=== PATIENT | male | born 1950 | race African-American/Black ===

== ENCOUNTER 2018-01-04 01:44 | Emergency (ER) | payer OTHER ==
[~2018-01-04] VITALS: Ht 182.9 cm; Wt 138.0 kg
[2018-01-04 03:24] LABS: BASOPHILS % 1.2 % (0.0-2.0); EOSINOPHILS % 2.8 % (0.0-5.0); HEMATOCRIT. 42.8 % (42.0-52.0); HEMOGLOBIN. 14.4 g/dL (14.0-18.0); LYMPHOCYTES % 19.7 % (20.0-50.0); MEAN CORPUSCULAR HEMOGLOBIN 33.1 pg (28.0-32.0); MEAN CORPUSCULAR VOLUME 98.4 fL (80.0-94.0); MEAN PLATELET VOLUME 8.5 fl (7.4-10.4); NEUTROPHILS % 65.3 % (40.0-76.0); PLATELET 284 x1000/uL (130-400); RED BLOOD CELL COUNT 4.35 mill/uL (4.7-6.1); RED CELL DISTRIBUTION WIDTH 14.2 % (11.6-14.6)
[2018-01-04 03:31] LABS: INR 1.1; PROTHROMBIN TIME 11.4 sec (9.4-11.6)
[2018-01-04 03:53] LABS: CHLORIDE 106 mEq/L (98-107)
[2018-01-04 06:20] VITALS: BP 110/69
== END 2018-01-04 06:20 | disposition home or self-care (01) ==
LOC: ER 02:52 → CANBEDREQ 08:22
DX: S09.8XXA Other specified injuries of head, initial encounter (principal); R53.1 Weakness; M79.89 Other specified soft tissue disorders; R06.02 Shortness of breath; I10 Essential (primary) hypertension; F41.9 Anxiety disorder, unspecified; E78.00 Pure hypercholesterolemia, unspecified; Z88.0 Allergy status to penicillin; Z90.49 Acquired absence of other specified parts of digestive tract; Z93.3 Colostomy status; Z90.81 Acquired absence of spleen; W18.39XA Other fall on same level, initial encounter; Y93.89 Activity, other specified; Y92.89 Other specified places as the place of occurrence of the external cause; Y99.8 Other external cause status
CPT/HCPCS: 36415; 70450; 71045; 80053; 83880; 84484; 85025; 85610; 93005; 99285

== ENCOUNTER 2024-07-24 22:58 | Inpatient (IN) | payer MEDICARE, OTHER, MEDICAID ==
[~2024-07-24] VITALS: Ht 182.9 cm; Wt 110.0 kg
[~2024-07-24 22:58] MED LIST: ALBU18HF2 IH; ASPI-1497 PO; ATOR10TA69 PO; ATOR40TA70 PO; CARV3.1242 PO; CARV6.2548 MT; CLON-493 PO; CLON0.1T PO; CLOP75TA33 PO; HYDR25TA78 PO; TAMS-11 PO
[2024-07-25 00:57] LABS: BASOPHILS % 0.4 % (0.0-2.0); EOSINOPHILS % 2.5 % (0.0-5.0); HEMATOCRIT. 37.4 % (42.0-52.0); HEMOGLOBIN. 12.3 g/dL (14.0-18.0); LYMPHOCYTES % 8.8 % (20.0-50.0); MEAN CORPUSCULAR HEMOGLOBIN 28.7 pg (28.0-32.0); MONOCYTES % 8.8 % (2.0-8.0); NEUTROPHILS % 79.5 % (40.0-76.0); PLATELET 371 x1000/uL (130-400); RED CELL DISTRIBUTION WIDTH 16.8 % (11.6-14.6); WHITE BLOOD COUNT 15.5 x1000/uL (4.5-11.0)
[2024-07-25] MEDS ORDERED: CEFEPIME 1GM IN DEXT 5% 50ML IV ONE (01:15)
[2024-07-25] MEDS ORDERED: VANCOMYCIN 1G PREMIX 200 ML IV ONE (01:15)
[2024-07-25] MEDS: SODIUM CHLORIDE 0.9% 1,000 ML IV ONE (01:21)
[2024-07-25 01:24] LABS: CHLORIDE 108 mEq/L (98-107); POTASSIUM 3.9 mEq/L (3.5-5.1); SODIUM 136 mEq/L (136-145)
[2024-07-25 01:25] LABS: CARBON DIOXIDE 10 mEq/L (21-32)
[2024-07-25 01:26] LABS: CALCIUM 10.2 mg/dL (8.7-10.4)
[2024-07-25 01:30] LABS: GLUCOSE 122 mg/dL (70-105)
[2024-07-25 01:31] LABS: TROPONIN I HIGH SENSITIVITY 33 ng/L (3.0-53)
[2024-07-25] MEDS: CEFEPIME 1GM/50ML 50 ML IV NR (01:38)
[2024-07-25] MEDS: VANCOMYCIN 1000MG/250ML IV NR (02:09)
[2024-07-25 02:45] LABS: CREATININE 11.9 mg/dL (0.6-1.3); UREA NITROGEN BLOOD 148 mg/dL (9-23)
[2024-07-25 03:43] LABS: CLARITY URINE CLEAR (CLEAR); COLOR URINE YELLOW (YELLOW); GLUCOSE URINE NEGATIVE (NEGATIVE); KETONES URINE NEGATIVE (NEGATIVE); LEUKOCYTE ESTERASE URINE 2+ (NEGATIVE); NITRITE URINE NEGATIVE (NEGATIVE); OCCULT BLOOD URINE 2+ (NEGATIVE); PH URINE 5.5 (4.5-8.0); PROTEIN URINE 1+ (NEGATIVE); SPECIFIC GRAVITY URINE 1.015 (1.005-1.030); UROBILINOGEN URINE 0.2 E.U./dL (0.2-1.0)
[2024-07-25 06:01] LABS: WBC URINE 15-25 /hpf (0-2)
[2024-07-25 06:10] LABS: SQUAMOUS EPITHELIAL CELL URINE NONE SEEN /lpf (RARE/1+)
[2024-07-25 06:12] LABS: BACTERIA URINE TRACE
[2024-07-25 08:00] VITALS: BP 91/65; PULSE 95; RESP 18; TEMP 36.3918; TEMP 36.418; O2SAT 98
[2024-07-25] MEDS ORDERED: ONDANSETRON HCL 4MG/2ML INJ IV PRN (10:00)
[2024-07-25] MEDS ORDERED: DOCUSATE SODIUM 100MG CAPSULE PO PRN (10:00)
[2024-07-25] MEDS: SODIUM CHLORIDE 0.9% 1,000 ML IV SCH (11:09)
[2024-07-25] MEDS: SODIUM BICARBONATE 8.4% 50MEQ/50ML SYR IV SCH (11:28)
[2024-07-25] MEDS: LEVOFLOXACIN 500MG PREMIX 100 ML IV SCH (11:30)
[2024-07-25 11:50] LABS: GLUCOSE URINE NEGATIVE (NEGATIVE)
[2024-07-25] MEDS: SODIUM BICARBONATE 150 MEQ in DEXTROSE 5% WATER 850 ML IV SCH (11:55)
[2024-07-25 12:00] VITALS: BP 112/92; PULSE 93; RESP 18; TEMP 36.33624; O2SAT 97
[2024-07-25 12:05] LABS: CREATINE KINASE 242 IU/L (46-171)
[2024-07-25 12:12] LABS: HEPATITIS B SURFACE ANTIGEN NEGATIVE (Negative)
[2024-07-25 12:18] LABS: CLARITY URINE CLOUDY (CLEAR); COLOR URINE RED (YELLOW); PH URINE 6.5 (4.5-8.0); SPECIFIC GRAVITY URINE 1.025 (1.005-1.030)
[2024-07-25 12:19] LABS: PROTEIN URINE 4+ (NEGATIVE)
[2024-07-25 12:20] LABS: KETONES URINE TRACE (NEGATIVE); LEUKOCYTE ESTERASE URINE 2+ (NEGATIVE); NITRITE URINE NEGATIVE (NEGATIVE); OCCULT BLOOD URINE 4+ (NEGATIVE); UROBILINOGEN URINE 0.2 E.U./dL (0.2-1.0)
[2024-07-25 12:31] LABS: RBC URINE TNTC /hpf (0-2); SQUAMOUS EPITHELIAL CELL URINE NONE SEEN /lpf (RARE/1+)
[2024-07-25 12:33] LABS: BACTERIA URINE 3+; WBC URINE 50-100 /hpf (0-2)
[2024-07-25 12:33] LABS: HEPATITIS C AB NON REACTIVE (Neg) (Negative)
[2024-07-25] MEDS: LEVOFLOXACIN 750MG PREMIX 150 ML IV NR (13:44)
[2024-07-25 16:00] VITALS: BP 101/71; PULSE 95; RESP 20; TEMP 36.44736; O2SAT 99
[2024-07-25] MEDS ORDERED: NALOXONE HCL 0.4MG/ML VIAL IV PRN (18:45)
[2024-07-25] MEDS: HYDROCODONE/ACETAMINOPHEN 5/325MG TABLET PO PRN (18:51)
[2024-07-25] MEDS: ZINC OXIDE 20% OINT 30GM TOP SCH (18:52)
[2024-07-25 19:01] LABS: BG BASE EXCESS -6.9 mmol/L (-2.0-3.0); BG CARBOXYHEMOGLOBIN 0.1 % (0.5-1.5); BG DEOXYHEMOGLOBIN 2.7 % (0.0-5.0); BG FRACTION INSPIRED OXYGEN 21; BG HCO3 ACT 14.4 mmol/L (21.0-28.0); BG METHEMOGLOBIN 0.3 % (0.5-1.5); BG OXYGEN SATURATION 97.3 % (94.0-98.0); BG OXYHEMOGLOBIN 96.9 % (94.0-98.0); BG PCO2 18.9 mmHg (35.0-48.0); BG PH 7.499 (7.350-7.450); BG PO2 88.2 mmHg (83.0-108.0); BG SAMPLE SITE RIGHT RADIAL; BG TOTAL HEMOGLOBIN 10.9 g/dL (13.5-17.5); BG VENT MODE ROOM AIR
[2024-07-25 19:50] VITALS: BP 117/55; PULSE 101; RESP 14; TEMP 36.83628; O2SAT 99
[2024-07-25] MEDS: MICONAZOLE NITRATE 2% OINT 71GM TOP SCH (20:12)
[2024-07-25] MEDS: SODIUM BICARBONATE 8.4% 50MEQ/50ML SYR IV NR (20:13)
[2024-07-26] VITALS (27 sets, daily range): BP systolic 66–126; BP diastolic 48–97; PULSE 98–147; RESP 8–28; TEMP 36.6696–36.9474; O2SAT 94–100
[2024-07-26] MEDS: IPRATROPIUM/ALBUTEROL 0.5-3(2.5)MG/3ML NEB HHN SCH (02:00)
[2024-07-26] MEDS: TAMSULOSIN HCL 0.4MG SR CAPSULE PO SCH (10:42)
[2024-07-26] MEDS: PANTOPRAZOLE SODIUM 40 MG/VIAL IV SCH (10:42)
[2024-07-26 12:56] LABS: BASOPHILS % 0.3 % (0.0-2.0); EOSINOPHILS % 0.5 % (0.0-5.0); HEMATOCRIT. 27.9 % (42.0-52.0); HEMOGLOBIN. 9.3 g/dL (14.0-18.0); LYMPHOCYTES % 7.9 % (20.0-50.0); MEAN CORPUSCULAR HEMOGLOBIN 28.8 pg (28.0-32.0); MEAN CORPUSCULAR HGB CONC 33.5 g/dL (31.0-37.0); MEAN PLATELET VOLUME 7.6 fl (7.4-10.4); MONOCYTES % 11.5 % (2.0-8.0); NEUTROPHILS % 79.8 % (40.0-76.0); PLATELET 277 x1000/uL (130-400); RED BLOOD CELL COUNT 3.24 mill/uL (4.7-6.1); RED CELL DISTRIBUTION WIDTH 16.8 % (11.6-14.6); WHITE BLOOD COUNT 16.7 x1000/uL (4.5-11.0)
[2024-07-26 13:06] LABS: CALCIUM 8.9 mg/dL (8.7-10.4)
[2024-07-26 13:19] LABS: CREATININE 2.8 mg/dL (0.6-1.3)
[2024-07-26 13:23] LABS: POTASSIUM 2.6 mEq/L (3.5-5.1)
[2024-07-26] MEDS: POTASSIUM CHLORIDE 20MEQ/PACKET PO NR ×2 (16:00→18:11)
[2024-07-26] MEDS: DILTIAZEM HCL 5MG/ML 5ML VIAL IV NR (16:40)
[2024-07-26] MEDS: POTASSIUM CHLORIDE 20MEQ TABLET SR PO SCH (16:45)
[2024-07-26] MEDS: IPRATROPIUM BROMIDE (0.02%) 0.5MG/2.5ML NEB HHN SCH (16:57)
[2024-07-26] MEDS ORDERED: NOREPINEPHRINE 8MG/250ML PMX 250 ML IV PRN (19:15)
[2024-07-26] MEDS ORDERED: PHENYLEPHRINE 50MG/250ML PMX 250 ML IV PRN (19:15)
[2024-07-26] MEDS ORDERED: PHENYLEPHRINE 50 MG in SODIUM CHLORIDE 0.9% 245 ML IV PRN (19:15)
[2024-07-26] MEDS: DILTIAZEM HCL 125 MG in DEXT 5% WATER 100 ML IV PRN (19:26)
[2024-07-26] MEDS: PHENYLEPHRINE 100 MG in SODIUM CHLORIDE 0.9% 240 ML IV PRN (19:27)
[2024-07-26] MEDS: MORPHINE SULFATE 2 MG/ML INJ (NOT FOR IM USE) IV PRN (20:13)
[2024-07-26] MEDS: SODIUM BICARBONATE 150 MEQ in DEXTROSE 5% WATER 850 ML IV SCH (20:29)
[2024-07-26 21:05] LABS: BASOPHILS % 0.3 % (0.0-2.0); EOSINOPHILS % 0.6 % (0.0-5.0); HEMOGLOBIN. 9.5 g/dL (14.0-18.0); MEAN CORPUSCULAR HEMOGLOBIN 28.4 pg (28.0-32.0); MEAN CORPUSCULAR HGB CONC 32.6 g/dL (31.0-37.0); MEAN CORPUSCULAR VOLUME 87.1 fL (80.0-94.0); MEAN PLATELET VOLUME 8.3 fl (7.4-10.4); MONOCYTES % 12.5 % (2.0-8.0); NEUTROPHILS % 74.6 % (40.0-76.0); PLATELET 287 x1000/uL (130-400); RED BLOOD CELL COUNT 3.33 mill/uL (4.7-6.1); WHITE BLOOD COUNT 19.7 x1000/uL (4.5-11.0)
[2024-07-26 21:12] LABS: POTASSIUM 3.5 mEq/L (3.5-5.1)
[2024-07-26 21:13] LABS: CALCIUM 9.1 mg/dL (8.7-10.4)
[2024-07-26 21:18] LABS: CREATININE 2.3 mg/dL (0.6-1.3)
[2024-07-26] MEDS: AZTREONAM 1 G in DEXTROSE 5% WATER 50 ML IV SCH (21:20)
[2024-07-27] VITALS (108 sets, daily range): BP systolic 32–157; BP diastolic 15–122; PULSE 101–125; RESP 10–37; TEMP 36.3918–37.11408; O2SAT 93–100
[2024-07-27 05:02] LABS: POTASSIUM 3.1 mEq/L (3.5-5.1)
[2024-07-27 05:03] LABS: CALCIUM 9.1 mg/dL (8.7-10.4)
[2024-07-27 05:04] LABS: BASOPHILS % 0.5 % (0.0-2.0); EOSINOPHILS % 0.9 % (0.0-5.0); HEMATOCRIT. 26.5 % (42.0-52.0); HEMOGLOBIN. 8.9 g/dL (14.0-18.0); LYMPHOCYTES % 11.9 % (20.0-50.0); MEAN CORPUSCULAR HGB CONC 33.6 g/dL (31.0-37.0); MEAN CORPUSCULAR VOLUME 86.3 fL (80.0-94.0); MEAN PLATELET VOLUME 8.2 fl (7.4-10.4); MONOCYTES % 12.4 % (2.0-8.0); NEUTROPHILS % 74.3 % (40.0-76.0); PLATELET 263 x1000/uL (130-400); RED BLOOD CELL COUNT 3.07 mill/uL (4.7-6.1); RED CELL DISTRIBUTION WIDTH 16.5 % (11.6-14.6); WHITE BLOOD COUNT 19.6 x1000/uL (4.5-11.0)
[2024-07-27] MEDS: DEXTROSE 5% WATER 1,000 ML IV SCH (05:53)
[2024-07-27] MEDS: HYDROCODONE/ACETAMINOPHEN 5/325MG TABLET PO PRN (06:29)
[2024-07-27] MEDS: KCL 20MEQ/100ML PREMIX 100 ML IV SCH (09:41)
[2024-07-27] MEDS ORDERED: LEVOFLOXACIN 250MG PREMIX 50 ML IV SCH (11:30)
[2024-07-27] MEDS ORDERED: LEVOFLOXACIN 500MG PREMIX 100 ML IV SCH (14:00)
[2024-07-27] MEDS: ACETAMINOPHEN 325MG TABLET PO PRN (20:14)
[2024-07-27] MEDS: ATORVASTATIN CALCIUM 40MG TABLET PO SCH (20:14)
[2024-07-28] VITALS (99 sets, daily range): BP systolic 40–155; BP diastolic 12–109; PULSE 96–124; RESP 12–36; TEMP 36.6696–36.89184; O2SAT 89–100
[2024-07-28 06:02] LABS: POTASSIUM 4.2 mEq/L (3.5-5.1)
[2024-07-28 06:04] LABS: CALCIUM 9.2 mg/dL (8.7-10.4)
[2024-07-28 06:08] LABS: CREATININE 2.3 mg/dL (0.6-1.3)
[2024-07-28 06:10] LABS: ALBUMIN 2.8 g/dL (3.2-4.8)
[2024-07-28 06:12] LABS: PREALBUMIN 6.4 mg/dl (10.0-40.0)
[2024-07-28 06:17] LABS: BASOPHILS % 0.4 % (0.0-2.0); EOSINOPHILS % 2.2 % (0.0-5.0); HEMATOCRIT. 25.9 % (42.0-52.0); HEMOGLOBIN. 8.5 g/dL (14.0-18.0); LYMPHOCYTES % 10.1 % (20.0-50.0); MEAN CORPUSCULAR HGB CONC 32.8 g/dL (31.0-37.0); MEAN CORPUSCULAR VOLUME 88.3 fL (80.0-94.0); MEAN PLATELET VOLUME 8.4 fl (7.4-10.4); NEUTROPHILS % 78.3 % (40.0-76.0); PLATELET 235 x1000/uL (130-400); RED BLOOD CELL COUNT 2.93 mill/uL (4.7-6.1); RED CELL DISTRIBUTION WIDTH 17.3 % (11.6-14.6); WHITE BLOOD COUNT 23.4 x1000/uL (4.5-11.0)
[2024-07-28] MEDS: LIDOCAINE HCL 1% 10 MG/ML 10ML VIAL ONE (09:03)
[2024-07-28 09:12] LABS: COMPLEMENT C3 135 mg/dL (82-167); COMPLEMENT C4 26 mg/dL (12-38)
[2024-07-28 14:11] LABS: ANTI-NUCLEAR ANTIBODIES DIRECT Negative (Negative)
[2024-07-28] MEDS: HALOPERIDOL LACTATE 5MG/ML VIAL IM NR (23:28)
[2024-07-29] VITALS (62 sets, daily range): BP systolic 67–147; BP diastolic 38–122; PULSE 88–125; RESP 9–29; TEMP 36.6696–37.2252; O2SAT 92–100
[2024-07-29 05:52] LABS: HEMATOCRIT 26.1 % (42.0-52.0); HEMOGLOBIN 8.2 g/dL (14.0-18.0); MEAN CORPUSCULAR HEMOGLOBIN 28.9 pg (28.0-32.0); MEAN CORPUSCULAR HGB CONC 31.4 g/dL (31.0-37.0); MEAN CORPUSCULAR VOLUME 92.2 fL (80.0-94.0); PLATELET 215 x1000/uL (130-400); RED BLOOD CELL COUNT 2.83 mill/uL (4.7-6.1); RED CELL DISTRIBUTION WIDTH 18.1 % (11.6-14.6)
[2024-07-29 06:48] LABS: POTASSIUM 4.7 mEq/L (3.5-5.1)
[2024-07-29 06:54] LABS: CREATININE 1.7 mg/dL (0.6-1.3)
[2024-07-29] MEDS: AZTREONAM 2GM in DEXTROSE 5% WATER 100ML IV SCH (10:28)
[2024-07-29] MEDS: CEFEPIME 2GM/100ML 100 ML IV SCH (14:33)
[2024-07-30] VITALS (111 sets, daily range): BP systolic 68–179; BP diastolic 29–121; PULSE 91–123; RESP 11–51; TEMP 37.00296–37.55856; O2SAT 94–100
[2024-07-30 06:23] LABS: BASOPHILS % 0.6 % (0.0-2.0); EOSINOPHILS % 8.4 % (0.0-5.0); HEMATOCRIT. 24.7 % (42.0-52.0); HEMOGLOBIN. 7.9 g/dL (14.0-18.0); MEAN CORPUSCULAR HEMOGLOBIN 28.7 pg (28.0-32.0); MEAN CORPUSCULAR HGB CONC 31.9 g/dL (31.0-37.0); MEAN CORPUSCULAR VOLUME 89.8 fL (80.0-94.0); MEAN PLATELET VOLUME 8.5 fl (7.4-10.4); MONOCYTES % 8.6 % (2.0-8.0); NEUTROPHILS % 66.4 % (40.0-76.0); PLATELET 211 x1000/uL (130-400); RED BLOOD CELL COUNT 2.75 mill/uL (4.7-6.1); RED CELL DISTRIBUTION WIDTH 18.4 % (11.6-14.6); WHITE BLOOD COUNT 17.7 x1000/uL (4.5-11.0)
[2024-07-30 06:37] LABS: POTASSIUM 4.1 mEq/L (3.5-5.1)
[2024-07-30 06:38] LABS: CALCIUM 8.4 mg/dL (8.7-10.4)
[2024-07-30 06:43] LABS: CREATININE 1.4 mg/dL (0.6-1.3)
[2024-07-30] MEDS ORDERED: IOHEXOL-300 100 ML BOTTLE ONE (07:53)
[2024-07-30] MEDS ORDERED: LIDOCAINE HCL 1% 10 MG/ML 10ML VIAL ONE (07:53)
[2024-07-30 08:40] LABS: INR 1.2; PROTHROMBIN TIME 13.4 sec (9.6-11.0)
[2024-07-30] MEDS ORDERED: IOHEXOL-300 50 ML BOTTLE IV ONE (10:25)
[2024-07-30] MEDS: CLONIDINE 0.1MG TABLET PO PRN (13:26)
[2024-07-31] VITALS (44 sets, daily range): BP systolic 73–143; BP diastolic 43–112; PULSE 94–124; RESP 14–26; TEMP 36.6696–37.2252; O2SAT 94–100
[2024-07-31 06:14] LABS: POTASSIUM 4.1 mEq/L (3.5-5.1)
[2024-07-31 06:15] LABS: CALCIUM 8.7 mg/dL (8.7-10.4)
[2024-07-31 06:18] LABS: HEMATOCRIT 28.3 % (42.0-52.0); HEMOGLOBIN 8.8 g/dL (14.0-18.0); MEAN CORPUSCULAR HEMOGLOBIN 28.3 pg (28.0-32.0); MEAN CORPUSCULAR VOLUME 91.2 fL (80.0-94.0); PLATELET 237 x1000/uL (130-400); RED CELL DISTRIBUTION WIDTH 18.5 % (11.6-14.6); WHITE BLOOD COUNT 20.4 x1000/uL (4.5-11.0)
[2024-07-31 06:20] LABS: CREATININE 1.5 mg/dL (0.6-1.3)
[2024-07-31] MEDS: MULTIVITAMINS,THER W-MINERALS TABLET PO SCH (15:14)
[2024-08-01 08:00] VITALS: BP 108/60; PULSE 86; RESP 18; TEMP 36.72516; O2SAT 94
[2024-08-01 11:09] LABS: CALCIUM 8.5 mg/dL (8.7-10.4)
[2024-08-01 11:13] LABS: BASOPHILS % 0.9 % (0.0-2.0); CREATININE 1.7 mg/dL (0.6-1.3); EOSINOPHILS % 7.1 % (0.0-5.0); HEMATOCRIT. 24.3 % (42.0-52.0); HEMOGLOBIN. 7.8 g/dL (14.0-18.0); MEAN CORPUSCULAR HEMOGLOBIN 29.3 pg (28.0-32.0); MEAN CORPUSCULAR HGB CONC 32.3 g/dL (31.0-37.0); MEAN CORPUSCULAR VOLUME 90.8 fL (80.0-94.0); MEAN PLATELET VOLUME 8.2 fl (7.4-10.4); MONOCYTES % 9.5 % (2.0-8.0); NEUTROPHILS % 67.5 % (40.0-76.0); PLATELET 209 x1000/uL (130-400); RED BLOOD CELL COUNT 2.68 mill/uL (4.7-6.1); RED CELL DISTRIBUTION WIDTH 18.1 % (11.6-14.6); WHITE BLOOD COUNT 13.6 x1000/uL (4.5-11.0)
[2024-08-01 12:00] VITALS: BP 108/81; PULSE 84; PULSE 94; RESP 18; TEMP 36.28068; O2SAT 98
[2024-08-01 16:00] VITALS: BP 116/60; PULSE 89; RESP 17; TEMP 36.78072; O2SAT 97
[2024-08-01] MEDS: FUROSEMIDE 20MG/2ML VIAL IVP NR (18:47)
[2024-08-01 20:00] VITALS: BP 110/55; PULSE 65; PULSE 95; RESP 20; TEMP 36.44736; O2SAT 94
[2024-08-02] VITALS: BP 112/56; PULSE 86; RESP 20; TEMP 36.44736; O2SAT 98
[2024-08-02 04:00] VITALS: BP 103/70; PULSE 81; RESP 20; TEMP 36.44736; O2SAT 99
[2024-08-02 08:00] VITALS: BP 123/57; PULSE 79; RESP 18; TEMP 36.50292; O2SAT 99
[2024-08-02 11:57] LABS: POTASSIUM 3.8 mEq/L (3.5-5.1)
[2024-08-02 11:58] LABS: CALCIUM 8.9 mg/dL (8.7-10.4)
[2024-08-02 12:00] VITALS: BP 103/50; PULSE 89; RESP 19; TEMP 36.55848; O2SAT 99
[2024-08-02 12:03] LABS: CREATININE 1.6 mg/dL (0.6-1.3)
[2024-08-02] MEDS: ASPIRIN 81MG TABLET PO SCH (13:30)
[2024-08-02 16:00] VITALS: BP 118/60; PULSE 87; RESP 18; TEMP 36.33624; O2SAT 97
[2024-08-02 20:00] VITALS: BP 132/69; PULSE 82; RESP 19; TEMP 36.72516; O2SAT 100
[2024-08-03] VITALS: BP 127/61; PULSE 75; RESP 19; TEMP 36.61404; O2SAT 100
[2024-08-03] MEDS ORDERED: NALOXONE HCL 0.4MG/ML VIAL IV PRN (00:30)
[2024-08-03] MEDS: TRAMADOL 50MG TABLET PO PRN (00:43)
[2024-08-03 04:00] VITALS: BP 124/61; PULSE 77; RESP 19; TEMP 36.72516; O2SAT 99
[2024-08-03 08:00] VITALS: BP 121/62; PULSE 81; RESP 18; TEMP 36.114; O2SAT 93
[2024-08-03 10:14] LABS: BASOPHILS % 0.7 % (0.0-2.0); EOSINOPHILS % 5.4 % (0.0-5.0); HEMATOCRIT. 26.8 % (42.0-52.0); HEMOGLOBIN. 8.7 g/dL (14.0-18.0); LYMPHOCYTES % 21.6 % (20.0-50.0); MEAN CORPUSCULAR HEMOGLOBIN 29.4 pg (28.0-32.0); MEAN CORPUSCULAR HGB CONC 32.5 g/dL (31.0-37.0); MEAN CORPUSCULAR VOLUME 90.3 fL (80.0-94.0); MEAN PLATELET VOLUME 8.2 fl (7.4-10.4); MONOCYTES % 11.8 % (2.0-8.0); NEUTROPHILS % 60.5 % (40.0-76.0); PLATELET 284 x1000/uL (130-400); RED BLOOD CELL COUNT 2.97 mill/uL (4.7-6.1); RED CELL DISTRIBUTION WIDTH 18.5 % (11.6-14.6); WHITE BLOOD COUNT 12.4 x1000/uL (4.5-11.0)
[2024-08-03 10:30] LABS: CHLORIDE 110 mEq/L (98-107); POTASSIUM 3.8 mEq/L (3.5-5.1); SODIUM 138 mEq/L (136-145)
[2024-08-03 10:31] LABS: CALCIUM 8.9 mg/dL (8.7-10.4); CARBON DIOXIDE 19 mEq/L (21-32)
[2024-08-03 10:36] LABS: CREATININE 1.3 mg/dL (0.6-1.3); GLUCOSE 94 mg/dL (70-105); UREA NITROGEN BLOOD 18 mg/dL (9-23)
[2024-08-03] MEDS: FUROSEMIDE 40MG/4ML VIAL IVP SCH (11:42)
[2024-08-03 12:00] VITALS: BP 121/56; PULSE 89; RESP 20; TEMP 36.78072; O2SAT 96
[2024-08-03 16:00] VITALS: BP 133/61; PULSE 88; RESP 20; TEMP 36.22512; O2SAT 94
[2024-08-03 20:00] VITALS: BP 117/60; PULSE 85; RESP 19; TEMP 36.72516; O2SAT 98
[2024-08-03] MEDS: TEMAZEPAM 15MG CAPSULE PO PRN (22:47)
[2024-08-04] VITALS: BP 128/66; PULSE 82; RESP 19; TEMP 36.61404; O2SAT 100
[2024-08-04 04:00] VITALS: BP_SYST 128; BP_SYST 129; BP_DIAS 66; BP_DIAS 69; PULSE 82; RESP 19; TEMP 36.61404; O2SAT 100
[2024-08-04 08:00] VITALS: BP 115/73; PULSE 83; RESP 18; TEMP 36.44736; O2SAT 98
[2024-08-04 12:00] VITALS: BP 118/58; PULSE 83; RESP 18; TEMP 36.44736; O2SAT 98
[2024-08-04 16:00] VITALS: BP 138/68; PULSE 90; RESP 19; TEMP 36.72516; O2SAT 96
[2024-08-04 20:00] VITALS: BP 127/64; PULSE 81; RESP 19; TEMP 36.6696; O2SAT 100
[2024-08-05] VITALS: BP 143/74; PULSE 84; RESP 18; TEMP 36.61404; O2SAT 99
[2024-08-05 04:00] VITALS: BP 110/59; PULSE 80; RESP 19; TEMP 36.61404; O2SAT 98
[2024-08-05 08:00] VITALS: BP 130/67; PULSE 91; RESP 20; TEMP 36.3918; O2SAT 97
[2024-08-05 12:00] VITALS: BP 133/69; PULSE 100; RESP 19; TEMP 36.61404; O2SAT 99
[2024-08-05 15:32] LABS: CHLORIDE 111 mEq/L (98-107); POTASSIUM 3.8 mEq/L (3.5-5.1); SODIUM 138 mEq/L (136-145)
[2024-08-05 15:33] LABS: CALCIUM 8.8 mg/dL (8.7-10.4); CARBON DIOXIDE 20 mEq/L (21-32)
[2024-08-05 15:38] LABS: CREATININE 1.1 mg/dL (0.6-1.3); GLUCOSE 110 mg/dL (70-105); UREA NITROGEN BLOOD 15 mg/dL (9-23)
[2024-08-05 15:46] LABS: HEMATOCRIT 27.8 % (42.0-52.0); HEMOGLOBIN 8.7 g/dL (14.0-18.0); MEAN CORPUSCULAR HEMOGLOBIN 28.4 pg (28.0-32.0); MEAN CORPUSCULAR HGB CONC 31.2 g/dL (31.0-37.0); MEAN CORPUSCULAR VOLUME 91.3 fL (80.0-94.0); PLATELET 341 x1000/uL (130-400); RED BLOOD CELL COUNT 3.04 mill/uL (4.7-6.1); WHITE BLOOD COUNT 13.5 x1000/uL (4.5-11.0)
[2024-08-05 16:00] VITALS: BP 149/72; PULSE 91; RESP 18; TEMP 36.55848; O2SAT 98
[2024-08-05 20:00] VITALS: BP 156/64; PULSE 96; RESP 20; TEMP 36.16956; O2SAT 95
[2024-08-06] VITALS: BP 125/61; PULSE 74; RESP 21; TEMP 36.114; O2SAT 97
[2024-08-06 04:00] VITALS: BP 144/76; PULSE 72; RESP 18; TEMP 35.66952; O2SAT 99
[2024-08-06 08:00] VITALS: BP 137/67; PULSE 83; RESP 18; TEMP 36.28068; O2SAT 98
[2024-08-06] MEDS: APIXABAN 5 MG TABLET PO SCH (11:35)
[2024-08-06 12:00] VITALS: BP 145/68; PULSE 80; RESP 18; TEMP 36.83628; O2SAT 98
[2024-08-06] MEDS ORDERED: APIX5TAB PO (14:37)
[2024-08-06 16:00] VITALS: BP 138/65; PULSE 79; RESP 16; TEMP 36.61404; O2SAT 99
[2024-08-06 20:00] VITALS: BP 140/76; PULSE 77; RESP 18; TEMP 36.78072; O2SAT 100
[2024-08-07] VITALS: BP 142/75; PULSE 90; RESP 18; TEMP 36.114
[2024-08-07 08:00] VITALS: BP 139/67; PULSE 76; RESP 19; TEMP 36.22512; O2SAT 97
[2024-08-07 12:00] VITALS: BP 159/75; PULSE 75; RESP 20; TEMP 36.22512; O2SAT 98
[2024-08-07 12:05] LABS: BASOPHILS % 0.8 % (0.0-2.0); EOSINOPHILS % 7.1 % (0.0-5.0); HEMATOCRIT. 27.9 % (42.0-52.0); HEMOGLOBIN. 8.7 g/dL (14.0-18.0); LYMPHOCYTES % 25.1 % (20.0-50.0); MEAN CORPUSCULAR HEMOGLOBIN 28.5 pg (28.0-32.0); MEAN CORPUSCULAR HGB CONC 31.3 g/dL (31.0-37.0); MEAN PLATELET VOLUME 8.1 fl (7.4-10.4); MONOCYTES % 12.6 % (2.0-8.0); NEUTROPHILS % 54.4 % (40.0-76.0); PLATELET 397 x1000/uL (130-400); RED BLOOD CELL COUNT 3.07 mill/uL (4.7-6.1); RED CELL DISTRIBUTION WIDTH 18.9 % (11.6-14.6)
[2024-08-07 12:10] LABS: CARBON DIOXIDE 21 mEq/L (21-32); CHLORIDE 110 mEq/L (98-107); POTASSIUM 4.4 mEq/L (3.5-5.1); SODIUM 138 mEq/L (136-145)
[2024-08-07 12:12] LABS: CALCIUM 9.4 mg/dL (8.7-10.4)
[2024-08-07 12:16] LABS: CREATININE 1.1 mg/dL (0.6-1.3)
[2024-08-07 12:17] LABS: GLUCOSE 100 mg/dL (70-105); UREA NITROGEN BLOOD 13 mg/dL (9-23)
[2024-08-07 16:00] VITALS: BP 137/76; PULSE 96; RESP 20; TEMP 36.22512; O2SAT 98
[2024-08-07 18:33] VITALS: BP 137/76; PULSE 96; TEMP 97.2; O2SAT 98
== END 2024-08-07 21:35 | DRG 871 ==
LOC: ER 22:58 → 3WST 07-25 02:28 → EDBEDREQ 07-25 02:38 → EDBEDREQDT 07-25 02:38 → EDBEDREQTM 07-25 02:38 → ER 07-25 08:00 → MICUNO 07-26 19:00 → 7EST 07-31 17:50 → 6WST 08-06 15:30
PROVIDERS: ADMIT Internal Medicine; ATTEND Internal Medicine
PROC: 0HBNXZZ Excision of Left Foot Skin, External Approach (ICD-10-PCS; 2024-07-28)
PROC: 06HY33Z Insertion of Infusion Device into Lower Vein, Percutaneous Approach (ICD-10-PCS; 2024-07-28)
PROC: B54NZZA Ultrasonography of Left Upper Extremity Veins, Guidance (ICD-10-PCS; 2024-07-28)
PROC: 06H03DZ Insertion of Intraluminal Device into Inferior Vena Cava, Percutaneous Approach (ICD-10-PCS; 2024-07-30)
PROC: 0HBNXZZ Excision of Left Foot Skin, External Approach (ICD-10-PCS; principal; 2024-08-03)
DX: A41.9 Sepsis, unspecified organism (principal); G92.8 Other toxic encephalopathy; L89.153 Pressure ulcer of sacral region, stage 3; I21.4 Non-ST elevation (NSTEMI) myocardial infarction; N17.9 Acute kidney failure, unspecified; N39.0 Urinary tract infection, site not specified; E87.20 Acidosis, unspecified; I50.22 Chronic systolic (congestive) heart failure; I13.0 Hypertensive heart and chronic kidney disease with heart failure and stage 1 through stage 4 chronic kidney disease, or unspecified chronic kidney disease; I48.20 Chronic atrial fibrillation, unspecified; I47.20 Ventricular tachycardia, unspecified; E11.52 Type 2 diabetes mellitus with diabetic peripheral angiopathy with gangrene; I82.413 Acute embolism and thrombosis of femoral vein, bilateral; L97.525 Non-pressure chronic ulcer of other part of left foot with muscle involvement without evidence of necrosis; Z20.822 Contact with and (suspected) exposure to COVID-19; I25.10 Atherosclerotic heart disease of native coronary artery without angina pectoris; N13.9 Obstructive and reflux uropathy, unspecified; N18.30 Chronic kidney disease, stage 3 unspecified; R31.0 Gross hematuria; I49.3 Ventricular premature depolarization; D64.9 Anemia, unspecified; E11.22 Type 2 diabetes mellitus with diabetic chronic kidney disease; E11.621 Type 2 diabetes mellitus with foot ulcer; E78.00 Pure hypercholesterolemia, unspecified; M21.20 Flexion deformity, unspecified site; M85.80 Other specified disorders of bone density and structure, unspecified site; F41.9 Anxiety disorder, unspecified; L89.220 Pressure ulcer of left hip, unstageable; I65.21 Occlusion and stenosis of right carotid artery; I45.19 Other right bundle-branch block; J44.9 Chronic obstructive pulmonary disease, unspecified; Z93.3 Colostomy status; Z79.01 Long term (current) use of anticoagulants; Z79.02 Long term (current) use of antithrombotics/antiplatelets; Z82.49 Family history of ischemic heart disease and other diseases of the circulatory system; Z86.718 Personal history of other venous thrombosis and embolism; Z86.73 Personal history of transient ischemic attack (TIA), and cerebral infarction without residual deficits; Z87.891 Personal history of nicotine dependence; Z88.0 Allergy status to penicillin; Z90.49 Acquired absence of other specified parts of digestive tract; Z90.81 Acquired absence of spleen; Z95.828 Presence of other vascular implants and grafts; Z79.899 Other long term (current) drug therapy; Z88.8 Allergy status to other drugs, medicaments and biological substances
CPT/HCPCS: 36415; 36573; 36600; 37191; 70551; 71045; 73590; 73630; 73700; 74176; 76770; 80048; 81003; 82040; 82375; 82550; 82805; 83605; 83880; 84134; 84145; 84484; 85025; 85027; 86038; 86160; 86705; 87340; 87426; 87804; 93005; 93970; 94640; 97162; 97166; 99285; A6261; C1725; C1766; C1769; C1880; C1887; J0692; J1630; J1644; J1940; J1956; J2270; J2470; J3370; J3480; J3490; J7030; J7050; J7060; J7070; Q9967; A5200